=== PATIENT | female | born 1975 | race Caucasian/White ===

== ENCOUNTER 2019-06-25 21:59 | Emergency (ER) | payer OTHER ==
[~2019-06-25] VITALS: Ht 154.9 cm; Wt 94.8 kg
[2019-06-25 22:06] VITALS: Ht 154.9 cm; Wt 94.8 kg
[2019-06-25 22:50] VITALS: BP 135/97
== END 2019-06-25 22:50 | disposition home or self-care (01) ==
LOC: ED 21:59
DX: K59.00 Constipation, unspecified (principal); I10 Essential (primary) hypertension; Z88.0 Allergy status to penicillin